=== PATIENT | male | born 1970 | race Caucasian/White ===

== ENCOUNTER 2017-03-07 22:35 | Emergency (ER) | payer OTHER ==
[2017-03-07] MEDS ORDERED: NS 1,000 ML IV ONE (22:41)
[2017-03-07] MEDS ORDERED: MIDAZOLAM 10 MG/2 ML VIAL IVP ONE (22:42)
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
[2017-03-07] MEDS ORDERED: MIDAZOLAM 2 MG/2 ML VIAL IVP ONE (23:02)
[2017-03-07 23:05] LABS: % IMMATURE GRANULYOCYTES 0.7 % (0.0-1.1); ABSOLUTE IMMATURE GRANULOCYTES 0.07 10^3/uL (0.00-0.10); ADD DIFF? NO; ADD MORPH? NO; ADD SCAN? NO; ATYPICAL LYMPHOCYTE FLAG 0 (0-99); FRAGMENT RBC FLAG 0 (0-99); HEMATOCRIT 51.8 % (40.0-51.0); HEMOGLOBIN 18.6 g/dL (13.7-17.5); LEFT SHIFT FLG 0 (0-99); LIPEMIA HEMOLYSIS FLAG 90 (0-99); MEAN CELL HEMOGLOBIN 33.2 pg (27.9-34.1); MEAN CELL HEMOGLOBIN CONCENTR. 35.9 g/dL (32.4-36.7); MEAN CELL VOLUME 92.3 fL (81.5-99.8); MEAN PLATELET VOLUME 11.3 fL (8.7-11.7); PLATELET CLUMPS FLAG 70 (0-99); PLATELET COUNT 151 10^3/uL (150-400); RED BLOOD CELL COUNT 5.61 10^6/uL (4.40-6.38); RED CELL DISTRIBUTION WIDTH 12.4 % (11.5-15.2)
[2017-03-07] MEDS ORDERED: LORazepam 2 MG/ML INJ ONE (23:12)
[2017-03-07 23:15] LABS: ANION GAP 21 mEq/L (8-16); CALCIUM 8.2 mg/dL (8.5-10.4); CARBON DIOXIDE 16 mEq/l (22-31); CHLORIDE 108 mEq/L (97-110); CREATININE 1.1 mg/dL (0.7-1.3); GLOMERULAR FILTRATION RATE > 60; GLUCOSE 188 mg/dL (70-100); INR 1.02 (0.83-1.16); POTASSIUM 3.9 mEq/L (3.5-5.2); PROTIME(PATIENT) 13.3 SEC (12.0-15.0); SODIUM 145 mEq/L (134-144)
[2017-03-07] MEDS ORDERED: IOPAMIDOL (ISOVUE-300) 100 ML BTL ONE (23:15)
[2017-03-07 23:20] VITALS: O2SAT 93
[2017-03-07 23:22] LABS: ETHANOL SERUM 373 mg/dL (0-10)
[2017-03-07] MEDS ORDERED: LORazepam 2 MG/ML INJ IVP ONE (23:45)
[2017-03-08 00:22] VITALS: BP 140/81; PULSE 128; RESP 16
[2017-03-08] MEDS ORDERED: ACETAMINOPHEN 325 MG TAB PO PRN (01:15)
[2017-03-08] MEDS ORDERED: D5W 1/2 NS 1,000 ML IV SCH (01:15)
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
[2017-03-08] MEDS ORDERED: IBUPROFEN 600 MG TAB PO SCH (06:00)
== END 2017-03-08 03:00 | disposition home or self-care (01) ==
LOC: EDBD 22:35 → INTOOBSV 03-08 00:58 → UNDOADMOB 03-08 00:58
DX: S20.229A Contusion of unspecified back wall of thorax, initial encounter (principal); F10.120 Alcohol abuse with intoxication, uncomplicated; S80.00XA Contusion of unspecified knee, initial encounter; T07 Unspecified multiple injuries; V48.0XXA Car driver injured in noncollision transport accident in nontraffic accident, initial encounter
CPT/HCPCS: 82947-QW; 96374; G0480; J2060; J2250; Q9967